=== PATIENT | male | born 1990 | race Caucasian/White ===

== ENCOUNTER 2023-08-11 08:16 | Outpatient (AMB) | payer OTHER, SELFPAY ==
--- NOTE | 2023-08-11 08:23 | AM.OFFWIN_ITS ---
Intake Vital Signs 08/11/23 08:28 Height 5 ft 10 in Weight 280 lb BMI 40.2 BP 130/82 Blood Pressure Location Lt brachial Position Sitting Pulse 98 Pulse Source Pulse Oximeter Temp 98.7 F Temp Source Oral Pulse Oximetry (%) 96 Intake Visit Reasons: [employer] Cold symptoms, SOB (masked) Intake Note: pt is here for c/o bad cough, congestion, runny nose, difficulty breathing started on wednesday Patient Tobacco Use Status: Never used Tobacco Allergies No Known Allergies Allergy (Verified 08/11/23 08:59) Medication List - Last Reconciled 08/11/23 by Ghazal Sher, [employer]ITE SUPERINTENDENT-[employer] benzonatate 100 mg PO TID PRN 10 days codeine-guaifenesin 10-100 mg/5 mL 5 mL PO .qhs PRN 3 days Do you need a note to return to daycare/school/sports/work: Yes HPI HPI Comments History of Present Illness Details Here today with complaints of flu-like symptoms that started on Wednesday. Started with a sore throat. He then developed ear pain runny nose and a cough. Reports he is coughing so much she is having muscle pain. Using several [id number] medications without relief. Up-to-date on COVID vaccines. Did not receive flu vaccine. PFS Social History Patient Tobacco Use Status: Never used Tobacco Review of Systems Const All systems reviewed & are unremarkable except as noted in HPI and below Physical Exam Vital Signs: Last Vital Signs Temp 98.7 F 08/11/23 08:28 Pulse 98 08/11/23 08:28 BP 130/82 08/11/23 08:28 Pulse Ox 96 08/11/23 08:28 BMI result Body Mass Index 40.2 Const Other: Mildly ill-appearing no acute distress Conjunctiva mildly injected bilat TM intact and erythematous bilat with mild bulging Nares with clear discharge bilat turbinates erythematous Pharynx with mild erythema no exudate Lung sounds clear bilat Mildly tachycardic Diaphoretic Assessment & Plan Assessment & Plan (1) Flu-like symptoms: Code(s): R68.89 - Other general symptoms and signs Plan: . Plan Viral swab obtained today. He will be called only if the results are positive. Appears to have the flu. I will treat the cough is the most disturbing symptom for him. He should continue with supportive care. Aware to use over-the- counter analgesics only and no other cough aids if he is using the medications I prescribed. Work note provided. Follow the current CDC guidelines. Educated on reasons to seek further care. Orders: Orders SARS-CoV2/FLU/RSV Today R68.89 - Other general symptoms and signs Medications: New benzonatate 100 mg PO TID PRN 30 caps 1RF cough 10 days codeine-guaifenesin 10-100 mg/5 mL 5 mL PO .qhs PRN 15 mL 0RF cough 3 days Coding Level of Care Code Est Pt Level 3 (45083) Diagnoses Flu-like symptoms R68.89
[2023-08-11 08:28] VITALS: BP 130/82; PULSE 98; TEMP 37.1; O2SAT 96; BMI 40.2
== END 2023-08-11 09:06 | disposition home or self-care (01) ==
PROVIDERS: Visit Provider Nurse Practitioner Family
DX: R68.89 Other general symptoms and signs (principal)
CPT/HCPCS: 99213

== ENCOUNTER 2023-08-11 11:09 | Outpatient (REF) | payer OTHER, SELFPAY ==
[2023-08-11 12:26] LABS: Influenza A PCR POSITIVE (Negative); Influenza B PCR NEGATIVE (Negative); Resp Syncy Virus RNA Qual PCR NEGATIVE (Negative); SARS COV2 PCR INHOUSE NEGATIVE (Negative)
== END 2023-08-11 11:10 | disposition home or self-care (01) ==
LOC: HO.HMGCLNP 11:09
PROVIDERS: Visit Provider Nurse Practitioner Family
DX: Z11.52 Encounter for screening for COVID-19 (principal); R68.89 Other general symptoms and signs
CPT/HCPCS: 0241U